=== PATIENT | male | born 1955 | race Caucasian/White ===

== ENCOUNTER 2016-09-13 08:49 | Emergency (ER) | payer BC, OTHER ==
[2016-09-13] MEDS ORDERED: Sodium Chloride 0.9% 10 ML Syringe FLUSH PRN (09:00)
[2016-09-13] MEDS ORDERED: Ketorolac 30 MG/ML SDV IVPUSH ONE (09:00)
[2016-09-13] MEDS ORDERED: Sodium Chloride 0.9% 2.5 ML Syringe FLUSH PRN (09:00)
--- NOTE | 2016-09-13 09:08 | EDM.PDOC ---
ED HISTORY OF PRESENT ILLNESS - General Chief Complaint: Chest Pain Stated Complaint: CHEST PAIN Time Seen by Provider: 09/13/16 09:10 Source of Information: Reports: Patient History Limitations: Reports: No limitations - History of Present Illness INITIAL COMMENTS - FREE TEXT/NARRATIVE: History of present illness: [] Patient started having back pain 2 days ago it has been constant. He states it radiates around to the front of his left chest. He had to drive to [place] yesterday and noticed with his hands on the steering wheel it made it worse. Patient denies any shortness of breath, dizziness, sweating, nausea, vomiting or syncope. Patient has had cardiac evaluations in the past including a treadmill stress test that have always been normal. Significant family history of coronary artery disease and [place]. Review of systems: As per history of present illness and below otherwise all systems reviewed and negative. Past medical history: As per history of present illness and as reviewed below otherwise noncontributory. Surgical history: As per history of present illness and as reviewed below otherwise noncontributory. Social history: No reported history of drug or alcohol abuse. Family history: As per history of present illness and as reviewed below otherwise noncontributory. Physical exam: General: Well developed, well nourished in NAD HEENT: Atraumatic, normocephalic, pupils reactive, negative for conjunctival pallor or scleral icterus, mucous membranes moist, throat clear, neck supple, nontender, trachea midline. Lungs: Clear to auscultation, breath sounds equal bilaterally, chest nontender to palpation, however patient does have reproducible tenderness to palpation along his upper back medial to the scapula Heart: S1S2, regular, negative for clicks, rubs, or JVD. Abdomen: Soft, nondistended, nontender. Negative for masses or hepatosplenomegaly. Negative for costovertebral tenderness. Pelvis: Stable nontender. Genitourinary: Deferred. Rectal: Deferred. Extremities: Atraumatic, negative for cords or calf pain. Neurovascular unremarkable. Neuro: Awake, alert, oriented. Cranial nerves II through XII unremarkable. Cerebellum unremarkable. Motor and sensory unremarkable throughout. Exam nonfocal. Diagnostics: [] Labs chest x-ray EKG Therapeutics: [] Toradol was given here in the ER Impression: [] Muscle spasm or upper back Plan: [] Flexeril Toradol for pain followup PMD Definitive disposition and diagnosis as appropriate pending reevaluation and review of above. - Related Data Allergies/ADRs: Allergies Allergy/AdvReac Type Severity Reaction Status Date / Time No Known Allergies Allergy Verified 09/13/16 09:57 Home Meds: Home Meds Aspirin [Adult Low Dose Aspirin EC] 1 tab PO DAILY 09/23/15 [History] Cyclobenzaprine [Flexeril] 10 mg PO BID PRN #10 tablet 09/13/16 [Rx] traMADol [Ultram] 50 mg PO Q8H PRN #10 tablet 09/13/16 [Rx] Past Medical History HEENT History: Reports: None Cardiovascular History: Reports: None Respiratory History: Reports: None Gastrointestinal History: Reports: None Genitourinary History: Reports: None Musculoskeletal History: Reports: Arthritis Other Musculoskeletal History: right shoulder , left knee Neurological History: Reports: None Psychiatric History: Reports: None Endocrine/Metabolic History: Reports: None Hematologic History: Reports: None Immunologic History: Reports: None Oncologic (Cancer) History: Reports: None Dermatologic History: Reports: Other (see below) Other Dermatologic History: keratosis - Past Surgical History Head Surgeries/Procedures: Reports: None HEENT Surgical History: Reports: Cataract surgery Cardiovascular Surgical History: Reports: None Respiratory Surgical History: Reports: None GI Surgical History: Reports: Colonoscopy Male Surgical History: Reports: None Endocrine Surgical History: Reports: None Neurological Surgical History: Reports: None Musculoskeletal Surgical History: Reports: None Oncologic Surgical History: Reports: None Dermatological Surgical History: Reports: None Social & Family History - Tobacco Use Smoking Status *Q: Former Smoker (quit smoking [id number]) - Alcohol Use Days Per Week of Alcohol Use: 1 (rare alcohol use) - Recreational Drug Use Recreational Drug Use: No ED ROS GENERAL - Review of Systems Review Of Systems: See Below (See history of present illness) ED EXAM, GENERAL - Physical Exam Exam: See Below (See history of present illness) Course - Vital Signs Last Recorded V/S: Last Vital Signs Temp 36.6 C 09/13/16 08:54 Pulse 61 09/13/16 09:37 Resp 20 09/13/16 09:37 BP 143/83 H 09/13/16 09:37 Pulse Ox 98 09/13/16 09:37 - Orders/Labs/Meds Orders: Active Orders 24 hr Category Date Time Status EKG 12 Lead [EKG Documentation Completion] [RC] STAT Care 09/13/16 08:56 Active Chest 2V [CR] Stat Exams 09/13/16 09:00 Taken Sodium Chloride 0.9% [Saline Flush] Med 09/13/16 09:00 Active 10 ml FLUSH ASDIRECTED PRN Sodium Chloride 0.9% [Saline Flush] Med 09/13/16 09:00 Active 2.5 ml FLUSH ASDIRECTED PRN Peripheral IV Insertion Adult [OM.PC] Stat Oth 09/13/16 09:00 Ordered Medication Orders Sodium Chloride (Saline Flush) 10 ml FLUSH ASDIRECTED PRN PRN Reason: Keep Vein Open Last Admin: 09/13/16 09:12 Dose: 10 ml Sodium Chloride (Saline Flush) 2.5 ml FLUSH ASDIRECTED PRN PRN Reason: Keep Vein Open Last Admin: 09/13/16 09:12 Dose: 2.5 ml Labs: Laboratory Tests 09/13/16 09/13/16 09/13/16 Range/Units 09:08 09:08 09:08 WBC 3.89 L (4.0-11.0) K/uL RBC 4.45 L (4.50-5.90) M/uL Hgb 13.9 (13.0-17.0) g/dL Hct 40.6 (38.0-50.0) % MCV 91.2 (80.0-98.0) fL MCH 31.2 (27.0-32.0) pg MCHC 34.2 (31.0-37.0) g/dL RDW Std Deviation 44.7 (28.0-62.0) fl RDW Coeff of Miladis 13 (11.0-15.0) % Plt Count 142 L (150-400) K/uL MPV 9.70 (7.40-12.00) fL Neut % (Auto) 42.1 L (48.0-80.0) % Lymph % (Auto) 37.5 (16.0-40.0) % Early % (Auto) 13.9 (0.0-15.0) % Eos % (Auto) 5.7 (0.0-7.0) % Baso % (Auto) 0.8 (0.0-1.5) % Neut # 1.6 (1.4-5.7) K/uL Lymph # 1.5 (0.6-2.4) K/uL Early # 0.5 (0.0-0.8) K/uL Eos # 0.2 (0.0-0.7) K/uL Baso # 0.0 (0.0-0.1) K/uL Nucleated RBC % 0.0 /100WBC Nucleated RBCs # 0 K/uL Sodium 139 (136-146) mmol/L Potassium 4.1 (3.5-5.1) mmol/L Chloride 111 H (98-110) mmol/L Carbon Dioxide 20 L (21-31) mmol/L BUN 11 (6.0-23.0) mg/dL Creatinine 0.9 (0.6-1.5) mg/dL Est Cr Clr Drug Dosing 89.48 mL/min Estimated GFR (MDRD) > 60.0 ml/min Glucose 117 H (60-110) mg/dL Calcium 8.5 L (8.8-10.8) mg/dL Total Bilirubin 0.7 (0.1-1.5) mg/dL AST 26 (5-40) IU/L ALT 23 (8-54) IU/L Alkaline Phosphatase 43 (40-150) Troponin I < 0.10 (0.0-0.29) NG/ML Total Protein 6.3 (6.0-8.0) g/dL Albumin 3.6 (3.4-4.8) g/dL Globulin 2.7 (2.0-3.5) g/dL Albumin/Globulin Ratio 1.3 (1.3-2.8) Meds: Medications Generic Name Dose Route Start Last Admin Trade Name Freq PRN Reason Stop Dose Admin Sodium Chloride 10 ml 09/13/16 09:00 09/13/16 09:12 Saline Flush FLUSH 10 ml ASDIRECTED PRN Administration Keep Vein Open Sodium Chloride 2.5 ml 09/13/16 09:00 09/13/16 09:12 Saline Flush FLUSH 2.5 ml ASDIRECTED PRN Administration Keep Vein Open Discontinued Medications Generic Name Dose Route Start Last Admin Trade Name Freq PRN Reason Stop Dose Admin Cyclobenzaprine HCl 10 mg 09/13/16 09:58 Flexeril PO 09/13/16 09:59 ONETIME ONE Ketorolac Tromethamine 30 mg 09/13/16 09:00 09/13/16 09:12 Toradol IVPUSH 09/13/16 09:01 30 mg ONETIME ONE Administration Departure - Departure Time of Disposition: 10:01 Disposition: Home, Self-Care 01 Condition: good Clinical Impression: Upper back pain on left side Prescriptions: Cyclobenzaprine [Flexeril] 10 mg PO BID PRN #10 tablet PRN Reason: Spasms traMADol [Ultram] 50 mg PO Q8H PRN #10 tablet PRN Reason: Pain Forms: ED Department Discharge Additional Instructions: The following information is given to patients seen in the emergency department who are being discharged to home. This information is to outline your options for follow-up care. We provide all patients seen in our emergency department with a follow-up referral. The need for follow-up, as well as the timing and circumstances, are variable depending upon the specifics of your emergency department visit. If you don't have a primary care physician on staff, we will provide you with a referral. We always advise you to contact your personal physician following an emergency department visit to inform them of the circumstance of the visit and for follow-up with them and/or the need for any referrals to a consulting specialist. The emergency department will also refer you to a specialist when appropriate. This referral assures that you have the opportunity for follow-up care with a specialist. All of these measure are taken in an effort to provide you with optimal care, which includes your follow-up. Under all circumstances we always encourage you to contact your private physician who remains a resource for coordinating your care. When calling for follow-up care, please make the office aware that this follow-up is from your recent emergency room visit. If for any reason you are refused follow-up, please contact the [facility] at and asked to speak to the emergency department charge nurse. tramadol & Flexeril for pain Followup PMD [facility] [address] [place] [id number] - My Orders Last 24 Hours: My Active Orders 09/13/16 08:56 EKG 12 Lead [EKG Documentation Completion] [RC] STAT 09/13/16 09:00 Chest 2V [CR] Stat Sodium Chloride 0.9% [Saline Flush] 10 ml FLUSH ASDIRECTED PRN Sodium Chloride 0.9% [Saline Flush] 2.5 ml FLUSH ASDIRECTED PRN Peripheral IV Insertion Adult [OM.PC] Stat - Assessment/Plan Last 24 Hours: My Active Orders 09/13/16 08:56 EKG 12 Lead [EKG Documentation Completion] [RC] STAT 09/13/16 09:00 Chest 2V [CR] Stat Sodium Chloride 0.9% [Saline Flush] 10 ml FLUSH ASDIRECTED PRN Sodium Chloride 0.9% [Saline Flush] 2.5 ml FLUSH ASDIRECTED PRN Peripheral IV Insertion Adult [OM.PC] Stat
[2016-09-13 09:42] LABS: CHLORIDE,CL 111 mmol/L (98-110); SODIUM,NA 139 mmol/L (136-146)
[2016-09-13] MEDS ORDERED: Cyclobenzaprine 10 MG Tab PO ONE (09:58)
[2016-09-13 10:09] VITALS: BP 138/92
[2016-09-13] MEDS ORDERED: Diphtheria,Pertussis(Acell),Tetanus Vaccine 0.5 ML Syringe IM ONE (10:25)
--- NOTE | 2016-09-14 21:17 | CR ---
EXAM DATE: 09/13/16 PATIENT'S AGE: 61 Patient: NATHANIEL PHILLIPS Facility: [place], [place] Site . Site : 1955 Study: XRay Chest [id number]/12/2017 9:22:48 AM Ordering Physician: Doctor Pate Final Report: Indication: Chest pain. Left scapular pain radiating to left chest. Technique: PA and lateral. Comparison: None. Findings: No infiltrate or pleural effusion. Opacity projected over the anterior right 5th rib on the PA image benign seen with certainty on the lateral. Sclerosis in the anterior 5th rib is suspected. Heart size and pulmonary vasculature within normal limits. Healed left-sided rib fractures. Impression: 1. No infiltrate or pleural effusion. 2. Opacity projecting over the anterior right 5th rib is not seen on the lateral. Sclerosis in the anterior 5th ribs suspected. Underlying pulmonary opacity not excluded. Comparison with any prior examination is suggested. Otherwise, CT suggested. 3. Healed left rib fractures. Dictated by Tyree Brito MD @ Sep 13 2016 9:24AM (Electronic Signature) Report Signed by Proxy and Original Signed Document filed in the Medical Record. MAGDALENO
== END 2016-09-13 10:34 | disposition home or self-care (01) ==
LOC: MW.ED 08:49
DX: M54.6 Pain in thoracic spine (principal); Z79.82 Long term (current) use of aspirin; Z98.49 Cataract extraction status, unspecified eye; Z87.891 Personal history of nicotine dependence
CPT/HCPCS: 36415; 71020; 80053; 84484; 85025; 90471; 90715; 93005; 96374; 99285; A9270; J1885; 99284

== ENCOUNTER 2017-07-28 09:07 | Day surgery (SDC) | payer BC, OTHER ==
[~2017-07-28 09:07] MED LIST: Acetaminophen/HYDROcodone 325-5 MG Tab PO PRN; Bupivacaine 0.25%/EPINEPHrine 1:200,000 10 ML SDV INJECT ONE; Bupivacaine 25%/EPINEPHrine/PF 30 ML ONE; Lactated Ringers 1,000 ML IV SCH; Midazolam 1 MG/ML 2 ML SDV ONE; Propofol 200 MG/20 ML SDV ONE; ceFAZolin 2 GM in Premix Bag 1 BAG IV ONE; fentaNYL 100 MCG/2 ML SDV ONE
--- NOTE | 2017-07-28 10:09 | PCM.PREANE ---
Preanesthetic Assessment - Anesthesia/Transfusion/Family Hx Anesthesia History: Prior Anesthesia Without Reaction Family History of Anesthesia Reaction: No Transfusion History: No Prior Transfusion(s) - Review of Systems General: No Symptoms Pulmonary: No Symptoms Cardiovascular: No Symptoms Gastrointestinal: No Symptoms Neurological: No Symptoms Other: Reports: None - Physical Assessment NPO Status Date: 07/27/17 NPO Status Time: 23:00 O2 Sat by Pulse Oximetry: 96 Respiratory Rate: 16 Vital Signs: Last Vital Signs Temp 36.4 C 07/28/17 09:15 Pulse 64 07/28/17 09:15 Resp 16 07/28/17 09:15 BP 132/79 07/28/17 09:15 Pulse Ox 96 07/28/17 09:15 Height: 1.83 m Weight: 90.718 kg ASA Class: 1 Mental Status: Alert & Oriented x3 Airway Class: Mallampati = 1 Dentition: Reports: Normal Dentition ROM/Head Extension: Full Lungs: Clear to Auscultation, Normal Respiratory Effort Cardiovascular: Regular Rate, Regular Rhythm - Allergies Allergies/Adverse Reactions: Allergies Allergy/AdvReac Type Severity Reaction Status Date / Time No Known Allergies Allergy Verified 07/23/17 12:04 - Anesthesia Plan Pre-Op Medication Ordered: None - Acknowledgements Anesthesia Type Planned: MAC Pt an Appropriate Candidate for the Planned Anesthesia: Yes Alternatives and Risks of Anesthesia Discussed w Pt/Guardian: Yes Pt/Guardian Understands and Agrees with Anesthesia Plan: Yes PreAnesthesia Questionnaire - Past Health History Medical/Surgical History: Denies Medical/Surgical History HEENT History: Reports: Cataract Cardiovascular History: Reports: None Respiratory History: Reports: None Gastrointestinal History: Reports: None Genitourinary History: Reports: None Musculoskeletal History: Reports: Arthritis Other Musculoskeletal History: right shoulder , left knee Neurological History: Reports: None Psychiatric History: Reports: None Endocrine/Metabolic History: Reports: None Hematologic History: Reports: None Immunologic History: Reports: None Oncologic (Cancer) History: Reports: None Dermatologic History: Reports: Other (See Below) Other Dermatologic History: keratosis - Past Surgical History Head Surgeries/Procedures: Reports: None HEENT Surgical History: Reports: Cataract Surgery, Tonsillectomy Cardiovascular Surgical History: Reports: None Respiratory Surgical History: Reports: None GI Surgical History: Reports: Colonoscopy Male Surgical History: Reports: None Endocrine Surgical History: Reports: None Neurological Surgical History: Reports: None Musculoskeletal Surgical History: Reports: None Oncologic Surgical History: Reports: None Dermatological Surgical History: Reports: None - SUBSTANCE USE Smoking Status *Q: Former Smoker Tobacco Use Within Last Twelve Months: No Days Per Week of Alcohol Use: 1 Recreational Drug Use History: No - HOME MEDS Home Medications: Home Meds Aspirin [Adult Low Dose Aspirin EC] 81 mg PO DAILY 09/23/15 [History] Fluorouracil [Efudex 5% Cream] 1 dose TOP ASDIRECTED PRN 07/23/17 [History] Naproxen Sodium [Aleve] 220 mg PO ASDIRECTED PRN 07/23/17 [History] - CURRENT (IN HOUSE) MEDS Current Meds: Current Medications Hydrocodone Bitart/Acetaminophen ([place] 325-5 Mg) 1 tab PO Q4H PRN PRN Reason: Pain Lactated Ringer's (Ringers, Lactated) 1,000 mls @ 500 mls/hr IV .BOLUS VANDANA Last Admin: 07/28/17 09:33 Dose: 500 mls/hr Discontinued Medications Bupivacaine HCl/Epinephrine Bitart (Marcaine 0.25%/Epinephrine 1:200,000) 10 ml INJECT ONETIME ONE Stop: 07/28/17 08:01 Fentanyl (Sublimaze) Confirm Administered Dose 100 mcg .ROUTE .STK-MED ONE Stop: 07/28/17 07:14 Cefazolin Sodium/Dextrose 2 gm (/ Premix) 50 mls @ 100 mls/hr IV ONETIME ONE Stop: 07/28/17 08:29 Bupivacaine HCl/Epinephrine Bitart (Sensorc Mpf 0.25%-Epi 1:[id number]) Confirm Administered Dose 30 mls @ as directed .ROUTE .STK-MED ONE Stop: 07/28/17 07:22 Midazolam HCl (Versed 1 Mg/Ml) Confirm Administered Dose 2 mg .ROUTE .STK-MED ONE Stop: 07/28/17 07:15 Propofol (Diprivan 20 Ml) Confirm Administered Dose 200 mg .ROUTE .STK-MED ONE Stop: 07/28/17 07:14
[2017-07-28] MEDS ORDERED: fentaNYL 100 MCG/2 ML SDV IVPUSH PRN (10:56)
[2017-07-28] MEDS ORDERED: ePHEDrine 50 MG/ML SDV ONE (11:00)
[2017-07-28] MEDS ORDERED: Glycopyrrolate 0.2 MG/ML SDV ONE (11:01)
--- NOTE | 2017-07-28 12:24 | PCM.POSTAN ---
POST ANESTHESIA ASSESSMENT - MENTAL STATUS Mental Status: Alert, Oriented - RESPIRATORY Respiratory Status: Respiratory Rate WNL, Airway Patent, O2 Saturation Stable - CARDIOVASCULAR CV Status: Pulse Rate WNL, Blood Pressure Stable - GASTROINTESTINAL GI Status: No Symptoms - POST OP HYDRATION Hydration Status: Adequate & Stable
--- NOTE | 2017-07-28 12:25 | PCM48HPAN ---
Post Anesthesia Note - EVALUATION WITHIN 48HRS OF ANESTHETIC Vital Signs in Normal Range: Yes Patient Participated in Evaluation: Yes Respiratory Function Stable: Yes Airway Patent: Yes Cardiovascular Function Stable: Yes Hydration Status Stable: Yes Pain Control Satisfactory: Yes Nausea and Vomiting Control Satisfactory: Yes Mental Status Recovered: Yes
[2017-07-28 13:56] VITALS: BP 133/82
--- NOTE | 2017-07-30 07:59 | PCM.OPNOTE ---
- General Post-Op/Procedure Note Date of Surgery/Procedure: 07/28/17 Operative Procedure(s): excision of left middle finger ganglion Pre Op Diagnosis: left middle finger ganglion Post-Op Diagnosis: Same Anesthesia Technique: General LMA, Local Primary Surgeon: Merlene Atkins Legal Assistant: Michelle Patton Complications: None Condition: Good
--- NOTE | 2017-07-30 20:22 | OR ---
SURGEON: MAKENNA SELF MD DATE OF PROCEDURE: 07/28/2017 PREOPERATIVE DIAGNOSIS: Left middle finger distal interphalangeal joint ganglion. POSTOPERATIVE DIAGNOSIS: Left middle finger distal interphalangeal joint ganglion. PROCEDURE: Excision of left middle finger distal interphalangeal joint ganglion. COMPUTER PROCESSING SCHEDULER: NADINE Lerner Reason for volunteer services assistant was retraction, prepping, draping, and closure. INDICATIONS: Mr. Booth is a 62-year-old gentleman with a DIP joint ganglion that is painful and causing some difficulties. It has come and gone and continues to cause problems. Risks and benefits of excision were discussed with him and he is in agreement to proceed. Risks were including, but not limited to, bleeding, infection, damage to underlying or overlying structures, possible need for future interventions, possible scarring. PROCEDURE IN DETAIL: After informed consent was obtained and placed on the chart, the patient was brought to the operating theater in supine position. After adequate general anesthesia was obtained, the area was prepped and draped and a time-out was completed to confirm side and site. A digital block was then completed and the arm was exsanguinated and the tourniquet was insufflated to 200 mmHg. Attention was then paid to dissection over the DIP joint in a curvilinear fashion in order to allow access to the ganglion cyst itself and then dissect onto the lateral distal interphalangeal joint to remove the joint mouse that was present. Once this was completed, it was copiously irrigated and a small amount of debridement of the PIP or distal phalanx was completed for the bony prominence. Once this was completed, the wound was irrigated and closed using 5-0 chromic stitch in a horizontal mattress fashion and dressed with a Band-Aid. The patient tolerated this well. All counts and needles were correct at the end of the case. FOLLOWUP INSTRUCTIONS: The patient will see us in clinic in 10 to 14 days, sooner if any problems, questions, or concerns. [id number] / NIKHIL /[id number]
== END 2017-07-28 12:45 | disposition home or self-care (01) ==
LOC: MW.SDS 09:07
PROVIDERS: ATTEND Plastic Surgery
DX: M67.442 Ganglion, left hand (principal); M17.12 Unilateral primary osteoarthritis, left knee; M75.41 Impingement syndrome of right shoulder; M65.30 Trigger finger, unspecified finger; L57.0 Actinic keratosis; Z79.82 Long term (current) use of aspirin; Z90.89 Acquired absence of other organs; Z98.890 Other specified postprocedural states; Z87.891 Personal history of nicotine dependence
CPT/HCPCS: 26160; J0690; J2250; J3010; J7120; 00400; 88304; J2704